=== PATIENT | male | born 1950 | race African-American/Black ===

== ENCOUNTER 2018-03-16 21:19 | Emergency (ER) | payer MEDICARE ==
[~2018-03-16] VITALS: Ht 182.9 cm; Wt 104.3 kg
[~2018-03-16 21:19] MED LIST: ACET325T9 PO; ALLO100T PO; ASPI-482 PO; CYAN10005 PO; ERGO500027 PO; FOLI1TAB16 PO; FURO20TA3 PO; HYDR100T24 PO; LEVO500T59 PO; METO-239 PO; MULT1TAB52 PO; PANT40TA3 PO; PRAV40TA PO; PRED2.5T PO; SIRO1TAB PO; TACR1CAP4 PO
[2018-03-16] MEDS ORDERED: fentaNYL PF VIAL 100 MCG/2 ML VIAL IV ONE ×2 (22:00→23:00)
--- NOTE | 2018-03-16 22:11 | PHYS DOC ---
Past Medical History Past Medical History: Alcoholism, CHF, GERD, High Cholesterol, Heart Disease, Hypertension, Renal Disease, Other Additional Past Medical Histor: cardiac transplant, GOUT (CARLOS ALBERTO PATINO APRN) Past Surgical History: Other Additional Past Surgical Histo: cardiac transplant, right lung biopsy (CARLOS ALBERTO PATINO APRN) Alcohol Use: Heavy Drug Use: None (CARLOS ALBERTO PATINO APRN) Adult General Chief Complaint Chief Complaint: MECHANICAL FALL HPI HPI 67-year-old male presents to ER via POV following a mechanical fall. Patient states approximately one hour prior to arrival he slipped on ice causing him to fall backwards. Patient denies striking his head or having any head or neck pain. Patient has complaints of extending his right arm as he fell and since has been having right shoulder and upper arm pain. Patient also has complaints of falling onto his left hip having left hip and left lower back pain. Patient has been ambulatory since the fall. Patient denies any dizziness, shortness of air or chest pain. Patient states he had no symptoms prior to the fall. (CARLOS ALBERTO PATINO APRN) Review of Systems Review of Systems Constitutional: Denies fatigue or lethargy Eyes: Denies change in visual acuity or eye pain [] HENT: Denies nosebleed Respiratory: Denies shortness of breath [] Cardiovascular: Denies CP GI: Denies abdominal pain, nausea, vomiting, or incontinence of bowel/bladder : Denies dysuria or hematuria [] Musculoskeletal: Report lt hip, rt shoulder/upper rt arm, and lt lower back pain Integument: Denies abrasions/bruising Neurologic: Denies headache, focal weakness or sensory changes. Denies dizziness All other systems were reviewed and found to be within normal limits, except as documented in this note. (CARLOS ALBERTO PATINO APRN) Current Medications Current Medications Current Medications Medications (Trade) Dose Ordered Sig/Donte Start Time Stop Time Status Last Admin Dose Admin Etomidate (Amidate) 20 mg 1X ONCE 03/16/18 23:00 03/16/18 23:01 DC 03/16/18 22:59 20 MG Fentanyl Citrate (Fentanyl 2ml Vial) 100 mcg 1X ONCE 03/16/18 23:00 03/16/18 23:01 DC 03/16/18 22:59 100 MCG Midazolam HCl (Versed) 5 mg STK-MED ONCE 1/23/19 23:05 03/16/18 23:07 DC Sodium Chloride 500 ml @ 500 mls/hr 1X ONCE 03/16/18 23:00 03/16/18 23:59 03/16/18 23:00 500 MLS/HR (COY SEN DO) Allergies Allergies Allergies Coded Allergies Type Severity Reaction Last Updated Verified amlodipine Allergy Intermediate 02/16/16 Yes hydrocodone Allergy Intermediate 02/16/16 Yes rosuvastatin Allergy Intermediate 02/16/16 Yes simvastatin Allergy Intermediate 02/16/16 Yes (COY SEN DO) Physical Exam Physical Exam Constitutional: Well developed, well nourished, mild distress on initial exam- anxious, non-toxic appearance. Clear speech HENT: Normocephalic, atraumatic, oropharynx moist, nose normal. [] Eyes: 2mm PERRLA, no nystagmus, conjunctiva normal, no discharge. [] Neck: Normal range of motion, no tenderness- no midline cervical tenderness on palp. or palp. deformity, supple, no stridor. [] Cardiovascular: Heart rate regular rhythm, no murmur [] Lungs & Thorax: Bilateral breath sounds clear to auscultation. Resp. equal/ nonlabored- no chest wall tenderness Abdomen: Bowel sounds normal, soft, no tenderness, no masses, no pulsatile masses. [] Skin: Warm, dry, no erythema, no rash. [] Back: No midline spinal tenderness or visible injury- no palp. deformity, no CVA tenderness. [] Extremities: Pelvis stable- tender on palp. lt lateral hip- no palp. deformity or shortening of extremity- 2+ dorsalis pedis/posterior tibial bilat, palp. anterior dislocation rt shoulder; tender on palp. rt midshaft upper arm; 2+ radial pulse bilat. Lt arm exam NL with full ROM. No cyanosis, no clubbing, ROM intact in rt elbow/hand, no edema. Full ROM of bilat. LEs Neurologic: Alert and oriented X 3, normal motor function, normal sensory function, no focal deficits noted. [] Psychologic: Affect normal, judgement normal, mood normal. [] (SHAWNTCARLOS ALBERTO APRN) Current Patient Data Vital Signs Vital Signs Date Time Temp Pulse Resp B/P (MAP) Pulse Ox O2 Delivery O2 Flow Rate FiO2 03/16/18 22:59 22 99 Room Air 03/16/18 21:25 97.9 76 127/85 (99) 97.9 (COY SEN DO) EKG EKG [] (CARLOS ALBERTO PATINO APRN) Radiology/Procedures Radiology/Procedures [] (CARLOS ALBERTO PATINO APRN) Course & Med Decision Making Course & Med Decision Making Pertinent Labs and Imaging studies reviewed. (See chart for details) 2330: With pt requiring conscious sedation for reduction of rt shoulder dislocation and will have recovery in ER- Dr. Sen will assume care for pt for further care and disposition. (CARLOS ALBERTO PATINO APRN) Course & Med Decision Making 23:15: Procedure note: Reduction of right anterior shoulder dislocation with conscious sedation. Patient is ASA class II. Informed consent is signed prior to the procedure. Following this, staff and supplies are gathered. Airway cart is close by. IV fluids are running. Suction was available. Supplemental oxygen is placed. Timeout was performed and to identifiers were used to identify this patient prior to the procedure. Patient was initially given 100 mg of fentanyl for pain control. Following this he was given 0.1 mg/kg of etomidate. Adequate sedation was achieved. Attempt at reduction initially failed despite considerable force being applied to the joint using traction/countertraction technique. Following this, the patient awoke. An additional dose of etomidate 0.5 mg/kg was given IV. This was followed by 2.5 mg of Versed. The patient again achieved adequate sedation. Traction/countertraction technique was again used and the joint reduced easily this time without much force. Pre procedure assessment of the upper extremity was revealing for 2+ radial pulses. Sensation light touch was intact over all dermatomes. Patient was able to make fist and touch thumb to small finger and make okay sign. Post procedure examination was same. Postreduction films revealed an adequately reduced right shoulder. Patient was placed in shoulder immobilizer. Patient tolerated well. He had no desaturations. His blood pressure remained stable. Please refer to nursing documentation for exact times of medication and procedure start stop. Coy Sen DO Emergency Medicine (COY SEN DO) Dragon Disclaimer Dragon Disclaimer This electronic medical record was generated, in whole or in part, using a voice recognition dictation system. (CARLOS ALBERTO PATINO APRN) Departure Departure Referrals: NO PCP (PCP) CARLOS ALBERTO PATINO APRN Mar 16, 2018 22:11 COY SEN DO Mar 16, 2018 23:18
[2018-03-16 23:00] VITALS: BP 144/70
[2018-03-16] MEDS ORDERED: IV NORMAL SALINE 500ML BAG 500 ML IV ONE (23:00)
[2018-03-16] MEDS ORDERED: ETOMIDATE 20 MG/10 ML VIAL. IV ONE (23:00)
[2018-03-16] MEDS ORDERED: MIDAZOLAM HCL/PF 5 MG/5 ML VIAL. ONE (23:05)
[2018-03-16] MEDS ORDERED: MIDAZOLAM HCL/PF 5 MG/5 ML VIAL. NS ONE (23:30)
--- NOTE | 2018-03-17 00:15 | RAD ---
Examination: SHOULDER 2+V RIGHT History: Mechanical fall today, pain Comparison/Correlation: None Findings: Two-view right shoulder x-ray exam was performed. Anterior dislocation of the right humeral head is present. No acute fracture or bony destruction. Mild acromioclavicular joint degenerative narrowing is evident. Suture material involving the lateral right mid thoracic level noted. Impression: Anterior dislocation of the right humeral head. Electronically signed by: Riley Farmer MD (03/17/2018 12:10 AM) [facility]
--- NOTE | 2018-03-17 00:16 | RAD ---
Examination: HUMERUS RIGHT History: Mechanical fall today, pain Comparison/Correlation: None Findings: Two-view right humerus x-ray exam was performed. Evaluation limited due to patient's condition. Anterior dislocation of the right humeral head is present. Humeral shaft is unremarkable. Distal humerus is unremarkable as well. Impression: Anterior dislocation of the right humeral head. No fracture. Electronically signed by: Riley Farmer MD (03/17/2018 12:11 AM) [facility]
--- NOTE | 2018-03-17 00:19 | RAD ---
Examination: SHOULDER 2+V RIGHT History: post reduction Comparison/Correlation: 03/16/2018 right shoulder x-ray exam performed earlier Findings: Two-view right shoulder x-ray exam was performed. Glenohumeral joint is unremarkable with no dislocation evident. Acromioclavicular joint degenerative narrowing is present. Remodeling of the colon is present. No fracture identified. Sternal wires are evident. Suture material at the right mid thoracic level noted. Surgical clips involve the upper thoracic midline. Impression: Interval reduction of previously evident right glenohumeral joint dislocation. No fracture delineated. Electronically signed by: Riley Farmer MD (03/17/2018 12:15 AM) [facility]
[2018-03-17] MEDS ORDERED: HYDR-3164 PO (01:12)
[2018-03-17] MEDS ORDERED: IBUP-1060 PO (01:12)
[2018-03-17 01:24] VITALS: BP 131/79
--- NOTE | 2018-03-17 07:49 | RAD ---
Left hip, 2 views, 03/16/2018: HISTORY: Fall No fracture or dislocation is identified. There is mild narrowing of the left hip joint with mild marginal spurring. IMPRESSION: No acute bony abnormality is detected. Electronically signed by: Samir Fleming MD (03/17/2018 7:44 AM) [facility]
== END 2018-03-17 01:30 | disposition home or self-care (01) ==
LOC: ER 21:19
DX: S43.015A Anterior dislocation of left humerus, initial encounter (principal); M25.552 Pain in left hip; M54.5 Low back pain; I11.0 Hypertensive heart disease with heart failure; I50.9 Heart failure, unspecified; K21.9 Gastro-esophageal reflux disease without esophagitis; E78.00 Pure hypercholesterolemia, unspecified; F10.20 Alcohol dependence, uncomplicated; Z88.8 Allergy status to other drugs, medicaments and biological substances; Z88.5 Allergy status to narcotic agent; Y90.9 Presence of alcohol in blood, level not specified; W00.0XXA Fall on same level due to ice and snow, initial encounter; Y93.89 Activity, other specified; Y92.89 Other specified places as the place of occurrence of the external cause; Y99.8 Other external cause status
CPT/HCPCS: 23650; 73030; 73060; 73502; 99285; J2250; J3010; J7040; 99152